=== PATIENT | female | born 1965 | race African-American/Black ===

== ENCOUNTER → 2017-01-15 | Outpatient (CLI) | payer OTHER ==
[~2017-01-15] MED LIST: ALLERGY10 M1 PO; ASPIRIN EC81 M1 PO; GLUCOPHAGE500 M1 PO; LIPITOR40 MG PO; LORTAB 5-325 M1 EACH PO; NORVASC10 MG PO; OMEPRAZOLE40 M1 PO; STOOL SOFTNER PO
--- NOTE | ~2017-01-15 | NM22 ---
[facility] A Service of [facility] RADIOLOGY TEXT RESULTS PATIENT: LACHELLE SMITH LOCATION: [facility] : [birth year] UNIT #: [id number] AGE: [address]: Tremayne Tejeda MD SEX: F ORDER DR: [id number] [facility] [address] [facility]. [place], [place] [address] [id number] O MR#: [id number] Acc #: [id number] NAME: LACHELLE SMITH : 1965 SEX: F STUDY DATE/TIME: 01/15/2017 12:48 UNIT: [facility] ROOM: STUDY DESCRIPTION: ND Hepatobiliary W GB Pharm Attending Physician: Tremayne Tejeda M.D. Referring Physician: Tremayne Tejeda M.D. Ordering Physician: Tremayne Tejeda M.D. Primary Care Physician: Gilmer Gayle Jr., A.P.R.N. MEDICAL IMAGING REPORT This report is preliminary unless electronic signature is present EXAM Hepatobiliary scan INDICATIONS Right upper quadrant abdominal pain with epigastric abdominal pain beginning 7 years ago but getting worse over the past year. PROCEDURE The patient was administered 5.35 mCi technetium labeled Choletec. Imaging of the upper abdomen was performed for 60 minutes. The patient was then administered 1.5 mcg of Kinevac IV per protocol. COMPARISON None FINDINGS Liver shows symmetric extraction excretion of radiotracer. Gallbladder fills by 30 minutes. Ejection fraction is 95.7% at 30 minutes. IMPRESSION Normal. Dictated by... Elliot Gore M.D. THIS IS AN ELECTRONICALLY VERIFIED REPORT Elliot Gore M.D. at 01/17/2017 9:56 PM Shad TD: 01/15/2017 16:14 JOB #: [id number] MEDICAL IMAGING REPORT [facility] A Service [facility] RADIOLOGY TEXT RESULTS PATIENT: LACHELLE SMITH LOCATION: [facility] : [birth year] UNIT #: [id number] AGE: [address]: Tremayne Tejeda MD SEX: F ORDER DR: Page 1 of 1 COPY
== END | disposition home or self-care (01) ==
LOC: CNUC 12:05
DX: R10.11 Right upper quadrant pain (principal); R10.13 Epigastric pain
CPT/HCPCS: 78227; A9537; J2805

== ENCOUNTER 2017-02-13 00:57 | Inpatient (IN) | payer OTHER ==
[~2017-02-13] VITALS: Ht 167.6 cm; Wt 80.0 kg
--- NOTE | ~2017-02-13 | A ---
[facility] Nutrition Therapy DATE: 02/13/17 Patient: LACHELLE SMITH Physician: MARILU Address: [address] [place] [address] Room/Bed: [address], Zip: [place] [address] Admit Date: 02/13/17 Date of : [birth year] Height: 5 6 Weight: 178 81 NUTRITIONAL ASSESSMENT: REASON: NO DIET ORDER IN ICU ASSESSMENT, ALSO SEEN FOR DX PT IS 51 Y.O. FEMALE ADMITTED FOR CVA PMH: HTN, ASTHMA, GERD, HERNIA REPAIR, TOBACCO ABUSE Anthropometrics: 5'6", WT: 178# (80.9 KG), BMI: 28.7 Labs: ALT: 47, ALL LABS WNL Meds: PROTONIX, NACL, KCL I/O & Bowel function: -/1000 Skin Integrity: NO KNOWN SKIN ISSUES Assessment: CHART REVIEWED AND EVENTS NOTED. PT SEEN FOR NO DIET ORDER IN ICU + DX. PER RN AND CHART, PT ADMITTED FOR ABOVE DX. HEAD CT, CTA OF HEAD & NECK WERE NEGATIVE, SYMPTOMS HAVE RESOLVED. PLANS IN PLACE TO ADVANCE DIET LATER TODAY. PT REPORTS GOOD PO INTAKE AND APPETITE PRIOR TO ADMIT, NOTING NO RECENT WEIGHT LOSS. THIS RD ENCOURAGED SLOW GRADUAL PO INTAKE ONCE DIET ADVANCES AND ALSO PROVIDED WRITTEN AND VERBAL HEALTHY HEART DIET EDUCATION. PT REPORTS CUTTING OUT FRIED FOODS AND BAKING MORE. PT ADMITS SHE EATS MIRAMONTES, EGGS AND SAUSAGE EVERY MORNING. RD ENCOURAGED PT TO CONSUME OTHER HEALTHIER LOW-SALT ALTERNATIVES, PT AGREED. PT REPORTED NO DIET QUESTIONS AT THIS TIME. RD TO REMAIN AVAILABLE. Dx: ALTERED NUTRIENT NEEDS R/T CURRENT DIAGNOSIS AEB NO DIET ORDER IN PLACE. Intervention: 1. NO DIET ORDER 2. RD DIET EDUCATION Monitoring, Evaluation and Goals: 1. ORAL INTAKE; ADVANCE DIET AND CONSUME/TOLERATE >50% OF MEALS 2. WEIGHTS; PROMOTE GRADUAL WEIGHT LOSS TOWARDS A HEALTHY BMI MONITOR: -DIET ADVANCEMENT/PO INTAKE -EDUCATION NEEDS Recommendations: 1. ONCE MEDICALLY FEASIBLE, ADVANCE DIET TOLERATED TO HEALTHY HEART. ENCOURAGE [facility] Nutrition Therapy DATE: 02/13/17 Patient: LACHELLE SMITH Physician: MARILU Address: [address] [place] [address] Room/Bed: [address], Zip: [place] [address] Admit Date: 02/13/17 Date of : [birth year] Height: 5 6 Weight: 178 81 COMPLIANCE OF DIET ORDER ONCE ADVANCED 2. CONSULT RD IF FURTHER DIET EDUCATION REQUESTED RD WILL F/U PER PROTOCOL PT IS MILDLY COMPROMISED Respectfully, KIM KIRK MS, RD, LD Food and Nutritional Services [facility] cc: client file
--- NOTE | ~2017-02-13 | FU ---
[facility] Nutrition Therapy DATE: 02/14/17 Patient: LACHELLE Camarena LUIS Physician: MARILU Address: [address] [facility] Room/Bed: [address], Zip: [place] [address] Admit Date: 02/13/17 Date of : [birth year] Height: 5 6 Weight: 176 80 NUTRITION MONITORING/FOLLOW-UP: Reason: CONSULT RE: DM EDUCATION RD PROVIDED VERBAL BASIC CC DIET EDUCATION. OF NOTE, RD PROVIDED HH DIET EDUCATION WELL ON 02/13/17. PT REPORTS LOVING PASTA AND DRINKS BIG RED DAILY. RD PROVIDED HEALTHIER ALTERNATIVES FOR PT, PT DEMONSTRATED UNDERSTANDING OF THE TOPIC. PT REPORTED NO ADDITIONAL DIET EDUCATION QUESTIONS. RD TO REMAIN AVAILABLE UPON REQUEST. RD WILL F/U PER PROTOCOL Respectfully, KIM KIRK MS, RD, LD Food and Nutritional Services [facility] cc: client file
--- NOTE | ~2017-02-13 | MR32 ---
[facility] A Service of [facility] RADIOLOGY TEXT RESULTS PATIENT: LACHELLE SMITH LOCATION: [address] : [birth year] UNIT #: [id number] AGE: [address]: SASHA JONES V SEX: F ORDER DR: [id number] [facility] [address] [place], [place] [address] [id number] I MR#: [id number] Acc #: [id number] NAME: LACHELLE SMITH : 1965 SEX: F STUDY DATE/TIME: 02/13/2017 16:55 UNIT: [facility] ROOM: [facility] STUDY DESCRIPTION: MR Cervical Wo Contrast Attending Physician: Sasha Jones M.D. Ordering Physician: Tal Nieto M.D. Primary Care Physician: Gilmer Gayle Jr., A.P.R.N. MRI CENTER REPORT This report is preliminary unless electronic signature is present. EXAM Cervical spine MRI without contrast. HISTORY Presumed CVA with improved symptoms after tPA. History of essential hypertension. Onset of symptoms 10:00 p.m. 02/12/2017 posterior neck pain numbness in left arm and left leg with weakness in the left arm. COMMENT MRI of the cervical spine performed without contrast using routine 1.5T imaging technique. FINDINGS There is no prior imaging of the cervical spine. There is an earlier CT angiogram head neck and separate MRI of the brain. Please refer to those reports. Sagittal alignment is normal. Study is motion limited. Marrow signal intensity is normal. Cervical cord is normal in size and signal intensity. Prominent vessels are seen anterior to the medulla on the sagittal imaging but there are no axial images through this level. This is the area of concern for possible small AVM on CT angiogram and again this is best pursued with a conventional angiogram. There is no Chiari-I malformation. At C2-3, no significant abnormality. C3-4, no focal disc protrusion or extrusion. No canal or foraminal impingement. At C4-5, mild bilateral facet degenerative change worse to the right with mild broad posterior disc bulge worse to the right. Mild effacement of STS. [facility] A Service of [facility] RADIOLOGY TEXT RESULTS PATIENT: LACHELLE SMITH LOCATION: [address] : [birth year] UNIT #: [id number] AGE: [address]: SASHA JONES V SEX: F ORDER DR: the right anterior thecal sac. No canal stenosis. No significant foraminal impingement. At C5-6, mild bilateral facet degenerative change mild left-side foraminal narrowing. No focal disc protrusion or extrusion or canal stenosis. C6-7, minor posterior disc bulging but no canal or foraminal impingement. C7-T1, mild left-side facet degenerative change in left foraminal narrowing. No canal stenosis. Preliminary wet reading provided by Dr. Madrigal at 17:52 on 02/13/17. IMPRESSION 1. Relatively minor cervical degenerative disease. No evidence for cervical canal stenosis. 2. There are some prominent vessels anterior to the medulla which appear to correspond to the vessels noted on the earlier CT angiogram. This is best pursued with conventional angiogram. MRI of the cervical spine does not include this region on the axial series. Dictated by... Nehal Finney M.D. THIS IS AN ELECTRONICALLY VERIFIED REPORT Nehal Finney M.D. at 02/15/2017 9:28 AM Jordan TD: 02/15/2017 06:13 JOB #: [id number] MRI CENTER REPORT Page 1 of 1 COPY
--- NOTE | ~2017-02-13 | CT18 ---
[facility] A Service of [facility] RADIOLOGY TEXT RESULTS PATIENT: LACHELLE SMITH LOCATION: [address] : [birth year] UNIT #: [id number] AGE: [address]: SASHA JONES V SEX: F ORDER DR: [id number] [facility] [address] [place], [place] [address] [id number] I MR#: [id number] Acc #: [id number] NAME: LACHELLE SMITH : 1965 SEX: F STUDY DATE/TIME: 02/13/2017 1:19 UNIT: [facility] ROOM: [facility] STUDY DESCRIPTION: CT Angio Head Stroke Attending Physician: Sasha Jones M.D. Ordering Physician: Zakia Camacho M.D. Primary Care Physician: Gilmer Gayle Jr., A.P.R.N. MEDICAL IMAGING REPORT This report is preliminary unless electronic signature is present EXAM CT scan of the head and neck with contrast with carotid CT angiography. HISTORY Headache, left-sided weakness, numbness and visual disturbance, onset prior to arrival. TECHNIQUE Axial imaging was obtained from the mid mediastinum to the top of head with contrast. 100 mL of Isovue was used. CT angiography was performed with thick sliding MIPs, curved planar reformats, and 3-D volumetric imaging with surface shaded and volume shaded display. This CT exam was performed with one or more of the following radiation dose reduction techniques: automatic exposure control, adjustment of mA and/or kV according to patient size, and iterative reconstruction. FINDINGS Extravascular structures are remarkable for mild thyromegaly. Correlate with thyroid function tests. The CT angiographic study is remarkable for an abnormal tangle of blood vessels to the left side of the upper cervical cord and with a prominent probable vein along the ventral aspect of the cord and medulla in the midline. 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 This should be further evaluated with a dedicated arteriogram. The remainder of the CT angiographic study is unremarkable. There is a tiny calcified plaque at the left carotid bifurcation with no stenosis by NASCET criteria and there is mild nonocclusive plaque at the great vessel origins. Intracranially there is no evidence of aneurysm or branch vessel occlusive disease. IMPRESSION [facility] A Service of [facility] RADIOLOGY TEXT RESULTS PATIENT: LACHELLE SMITH LOCATION: [address] : [birth year] UNIT #: [id number] AGE: [address]: SASHA JONES V SEX: F ORDER DR: 1. Generalized thyromegaly. Correlate with thyroid function tests. 2. Abnormal vascularity to the left of the upper cervical cord extending into the medulla. 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 Recommend dedicated arteriography for further evaluation of this. Dictated by... Rj Hirsch M.D. THIS IS AN ELECTRONICALLY VERIFIED REPORT Rj Hirsch M.D. at 02/13/2017 4:42 PM ABAD/laura TD: 02/13/2017 12:22 JOB #: [id number] MEDICAL IMAGING REPORT Page 1 of 1 COPY
--- NOTE | ~2017-02-13 | DS ---
Unit #: [id number] #: [id number] Patient: LACHELLE TORRES [id number] [address] [place], [place] [address] [id number] I MR#: [id number] NAME: LACHELLE TORRES. ROOM: [facility] Age: 51 Sex: F Admission Date: 02/13/2017 : 1965 Discharge Date: 02/14/2017 Attending Physician: Gama Rocha M.D. Primary Care Physician: Gilmer Gayle Jr., A.P.R.N. DISCHARGE SUMMARY PRINCIPAL DIAGNOSES 1. Acute transient ischemic attack with left-sided numbness, aborted with tissue plasminogen activator. 2. Hypertension. 3. Mild insulin resistance with hemoglobin A1C of 6.1. 4. Tobaccoism. 5. Asthma. 6. History of illicit substance use. 7. Gastroesophageal reflux disease. 8. Chronic back pain. CONSULTANTS Dr. Nieto, neurology. PROCEDURES Administration of alteplase, which occurred without complication. DIAGNOSTIC STUDIES CARDIOVASCULAR: Two-dimensional echocardiogram on February 13, 2017 with ejection fraction of 65%, mild septal asymmetric hypertrophy noted. Mildly dilated left atrium. No evidence of abnormality on bubble study. Moderate tricuspid regurgitation noted. Mild mitral regurgitation. Right ventricular systolic pressure of 35 mmHg. IMAGING: CT of the head without contrast on February 13, 2017, which was normal. CT angiogram of the head and neck on February 13, 2017 with generalized thyromegaly. Abnormal vascularity of the left upper cervical cord extending into the medulla concerning for small AVM. MRI of the brain without contrast on February 13, 2017 with small vessel ischemic change. No other acute ischemic findings. MRI of the cervical spine without evidence of AVM. There is no cord compression, cord edema or significant disk disease. Repeat CT scan of the head without contrast on February 14, 2017 again without any acute abnormalities. CLINICAL HISTORY AND HOSPITAL COURSE Ms. Torres is a 51-year-old female who presented to the emergency department with acute onset of left-sided numbness and weakness. This was associated with headache, blurred vision, nausea and vomiting. Unit #: [id number] #: [id number] Patient: LACHELLE TORRES The patient presented to out ER and was found to be hypertensive. Ultimately, she was administered alteplase with resolution of her symptoms and admitted to the ICU for further monitoring. The patient's had no further symptoms following administration of alteplase. She has had followup CT scan, which did not reveal any intracranial bleeding as a result. MRI of the brain and MRI of the neck were also unremarkable. I will note an MRI of the neck was done to evaluate abnormal AVM, but again, this was not noted on MRI. Patient today is clinically improved and will be discharged home. The patient does admit she is not always compliant with her medications at home, including aspirin, which she has been prescribed in the past. Thus, this is not considered aspirin failure, and she will reinitiate aspirin therapy. Tobacco cessation has also been stressed. DISCHARGE CONDITION Stable. DISCHARGE STATUS Discharge to home. DISCHARGE MEDICATIONS 1. Aspirin 81 mg daily. 2. Norvasc 10 mg daily with one refill given. 3. Lipitor 40 mg at bedtime with one refill given. 4. Lortab 5/325 mg 1 tablet daily p.r.n. back pain. 5. Omeprazole 20 mg daily. 6. Stool softener p.r.n. opiate-related constipation. DISCHARGE INSTRUCTIONS Patient instructed to follow a heart healthy, constant carb diet. She has received some dietary education. She can increase her activity as tolerated. Refrain from any further tobacco use. FOLLOW-UP 1. Patient will follow up with Dr. Kong Cotto of outpatient neurology in approximately 6 weeks. 2. The patient will follow up with her primary care provider, Gilmer Gayle A.P.R.N., in 2 weeks. NOTE: Time spent on discharge today - 33 minutes. Dictated by... Suad Jiang M.D. AMIE/miguelito TD: 02/16/2017 09:37 JOB #: [id number] Unit #: [id number] #: [id number] Patient: LUISLACHELLE Migue DISCHARGE SUMMARY Page 1 of 1 X Suad Jiang MD DISCHARGE SUMMARY
--- NOTE | ~2017-02-13 | EKG ---
PATIENT: LACHELLE SMITH UNIT #: [id number] Ventricular Rate: 65 BPM Atrial Rate: 65 BPM P-R Interval: 168 ms QRS Duration: 94 ms Q-T Interval: 430 ms QTC Calculation(Bezet): 447 ms P [place]: 71 degrees Calculated R [place]: 66 degrees Calculated T [place]: 43 degrees Diagnosis Line: Normal sinus rhythm Diagnosis Line: Normal ECG Diagnosis Line: When compared with ECG of 15-NOV-2014 16:45, Diagnosis Line: Nonspecific T wave abnormality no longer evident Diagnosis Line: in Anterior leads Diagnosis Line: Confirmed by DYLAN HILLS MD ([id number]) on 02/15/2017 Diagnosis Line: 2:43:04 PM INTERPRETING MD: JEANA BORRERO
--- NOTE | ~2017-02-13 | CT71 ---
[facility] A Service of [facility] RADIOLOGY TEXT RESULTS PATIENT: LACHELLE SMITH LOCATION: [place] [address] : [birth year] UNIT #: [id number] AGE: [address]: SASHA JONES V SEX: F ORDER DR: [id number] [facility] [address] [facility]. [place], [place] [address] [id number] I MR#: [id number] Acc #: [id number] NAME: LACHELLE SMITH : 1965 SEX: F STUDY DATE/TIME: 02/14/2017 01:47 UNIT: [facility] ROOM: [facility] STUDY DESCRIPTION: CT Head Wo Contrast Attending Physician: Sasha Jones M.D. Ordering Physician: Ed Doctor [id number] [facility] Primary Care Physician: Gilmer Gayle Jr., A.P.R.N. MEDICAL IMAGING REPORT This report is preliminary unless electronic signature is present EXAM CT head without contrast, 02/14/17 INDICATIONS Stroke with left side weakness and blurred vision. Symptoms improving. Patient is 24-hour status post TPA administration. FINDINGS Axial images were obtained from base to vertex without contrast. Comparison made with 02/13/2017. This CT exam was performed with one or more of the following radiation dose reduction techniques: automatic exposure control, adjustment of mA and/or kV according to patient size, and iterative reconstruction. Ventricular size and configuration remain normal. No evidence of acute infarct or hemorrhage. No masses. There is no skull fracture. IMPRESSION Negative head CT. No change from prior. Dictated by... Rj Acosta Jr., M.D. THIS IS AN ELECTRONICALLY VERIFIED REPORT Rj Acosta Jr., M.D. at 02/15/2017 4:56 AM JAVI/nury TD: 02/14/2017 22:03 JOB #: [id number] [facility] A Service of [facility] RADIOLOGY TEXT RESULTS PATIENT: LACHELLE SMITH LOCATION: [address] : [birth year] UNIT #: [id number] AGE: [address]: SASHA JONES V SEX: F ORDER DR: MEDICAL IMAGING REPORT Page 1 of 1 COPY
--- NOTE | ~2017-02-13 | HP ---
Unit #: [id number] #: [id number] Patient: LACHELLE SMITH [id number] [address] [place], [place] [address] [id number] I MR#: [id number] NAME: LACHELLE SMITH. ROOM: [facility] Age: 51 Sex: F Admission Date: 02/13/2017 : 1965 Attending Physician: Susan Zendejas M.D. Primary Care Physician: Gilmer Gayle Jr., A.P.R.N. HISTORY AND PHYSICAL CHIEF COMPLAINT Left-sided numbness and weakness better following tPA. HISTORY This 51-year-old female with hypertension, asthma is admitted for left-sided weakness. Patient was in her usual state of health until 10:00 p.m. last evening. She developed posterior neck pain, and then noted numbness in her left arm and left leg with weakness in the left arm. Did experience a frontal headache and some blurred vision with nausea and vomiting. She presented to this emergency department at 1:00 a.m. A code stroke was called, the patient immediately went to CT scan and was seen by the [place]. Her blood pressure was 170/104 but did improve. Due to worsening left pronator drift, she was given tPA per protocol. Her symptoms have since resolved. Head CT, CTA of the head and neck were negative. She has never had similar symptoms in the past. PAST MEDICAL HISTORY 1. Hypertension. 2. Asthma. 3. Total abdominal hysterectomy. 4. . 5. Hernia repair. 6. D and C. ALLERGIES No known drug allergies. HOME MEDICATIONS Norvasc 10 mg daily; Prilosec 20 mg daily. FAMILY HISTORY Hypertension, colon cancer, CAD at a young age. SOCIAL HISTORY The patient lives with her significant other and family. She smokes one pack per day of tobacco, seldom drinks alcohol, does not use illicit drugs. REVIEW OF SYSTEMS Is notable for a left-sided weakness and numbness, hypertension, asthma, tobacco, above mentioned surgeries, blurred vision, headache. All other systems were reviewed and otherwise negative. Unit #: [id number] #: [id number] Patient: LACHELLE MSITH PHYSICAL EXAMINATION GENERAL: Pleasant, mildly obese, 51-year-old female currently in no acute distress. VITAL SIGNS: Temperature 97.7, pulse 70, respirations 14, initial blood pressure 170/104, current blood pressure is 157/78, O2 saturation is 95%. HEENT: Eyes - PERRLA. Extraocular muscles are intact. Pharynx is benign. NECK: Supple without adenopathy, thyromegaly, or carotid bruits. CHEST: Clear. CARDIAC: Normal S1 and S2 without murmur. ABDOMEN: Bowel sounds are present. No hepatosplenomegaly, tenderness, or masses. EXTREMITIES: Without clubbing, cyanosis or edema. Pedal pulses are present. NEUROLOGIC: Patient is awake, alert, and oriented. Cranial nerves are intact. She has +5/5 strength throughout. Normal rapid alternating movements. Normal xokyea-ii-hine. Negative pronator drift. Toes are downgoing bilaterally. Normal bzpt-oo-wuxw. DIAGNOSTIC STUDIES ADMISSION LABS: Hematocrit 45.2, normal white count, platelet count, coags. SMA 7 - potassium is 3.4, glucose 131, INR is 1. IMAGING STUDIES: Head CT - no acute disease. CTA of the head and neck normal. CARDIOLOGY STUDIES: EKG shows a normal sinus rhythm, rate 65, normal appearing. ASSESSMENT 1. Presumed CVA with improved symptoms after tPA. 2. Essential hypertension. 3. GERD. 4. Tobacco use. PLANS 1. Post tPA orders. 2. Neurology, already saw the robot in CT scan, will be seeing in the morning. 3. Smoking cessation counseling. 4. Obtain lipid profile. 5. Obtain urinalysis. 6. SCDs for DVT prophylaxis. 7. Thyroid function test as the thyroid was noted to be enlarged on CTA of the head and neck. 8. Further neurologic workup including MRI, echo, etc. per neurology. Critical care time spent evaluating this patient was 30 minutes. Dictated by Rob Albright/maggie TD: 02/13/2017 05:29 JOB #: [id number] Unit #: [id number] #: [id number] Patient: LACHELLE SMITH HISTORY AND PHYSICAL Page 1 of 1 X Susan Zendejas MD X HISTORY AND PHYSICAL
--- NOTE | ~2017-02-13 | EE ---
Unit #: [id number] #: [id number] Patient: LACHELLE SMITH [id number] [facility]. [address] [place], [place] [address] [id number] I MR#: [id number] NAME: LACHELLE SMITH : 1965 SEX: F STUDY DATE/TIME: 02/13/2017 UNIT: [facility] ROOM: [facility] STUDY DESCRIPTION: Attending Physician: Gaam Rocha M.D. Primary Care Physician: Gilmer Gayle Jr., A.P.R.N. NEURODIAGNOSTICS REPORT EXAM EEG report REASON FOR STUDY The patient had focal event and was treated with TPA and rule out seizure as a possibility of focal abnormalities. EEG DESCRIPTION This is an inpatient, portable, digitally recorded multimontage adult EEG with leads placed according to the International 10/20 system. Hyperventilation and photic stimulation were attempted. FINDINGS With the patient fully aroused there is 10-11 Hz posterior dominant Alpha rhythm which is symmetric and attenuates with eyes opening. The patient did become drowsy and later on stage II sleep was seen. Hyperventilation was attempted but I do not see any significant changes. Photic stimulation was attempted and intermittent stepwise pattern up to the flash frequency of 30 Hz but I do not see any driving, asymmetry, or paroxysmal activity. No clinical events were seen. IMPRESSION This is an essentially normal adult awake and asleep EEG. EEG like this does not rule out epilepsy. Clinical correlation is recommended. Dictated by... Rob Mirza/tara TD: 02/15/2017 16:10 JOB #: [id number] Unit #: [id number] #: [id number] Patient: LACHELLE SMITH NEURODIAGNOSTICS REPORT Page 1 of 1 X Tal Nieto MD NEURODIAGNOSTICS REPORT
--- NOTE | ~2017-02-13 | CT72 ---
[facility] A Service of [facility] RADIOLOGY TEXT RESULTS PATIENT: LACHELLE SMITH LOCATION: [address] : [birth year] UNIT #: [id number] AGE: [address]: MARÍA ELENA JONESUJ V SEX: F ORDER DR: [id number] [facility] [address] [place], [place] [address] [id number] I MR#: [id number] Acc #: [id number] NAME: LACHELLE SMITH : 1965 SEX: F STUDY DATE/TIME: 02/13/2017 1:09 UNIT: [facility] ROOM: [facility] STUDY DESCRIPTION: CT Head Wo Contrast Stroke Attending Physician: Susan Zendejas M.D. Ordering Physician: Ed Doctor [id number] [facility] Primary Care Physician: Gilmer Gayle Jr., A.P.R.N. MEDICAL IMAGING REPORT This report is preliminary unless electronic signature is present EXAM CT head, noncontrast, 02/13/2017 HISTORY A 51-year-old female in the ED complaining of new onset left-side weakness and numbness with headache and visual disturbance beginning tonight prior to arrival. TECHNIQUE CT examination of the head without IV contrast under stroke protocol. Exam time 01:09 hours. Exam interpretation time 01:[address] exam was performed with one or more of the following radiation dose reduction techniques: automatic exposure control, adjustment of mA and/or kV according to patient size, and iterative reconstruction. FINDINGS The examination is negative. No evidence of intracranial hemorrhage, mass, mass effect, cerebral edema, hydrocephalus or additional abnormality. No change since the previous study of 11/15/2014. IMPRESSION Negative head CT examination. No change since 11/15/2014. Dictated by... Brad Hudson M.D. THIS IS AN ELECTRONICALLY VERIFIED REPORT Brad Hudson M.D. at 02/13/2017 5:03 PM DREW/nury [facility] A Service of [facility] RADIOLOGY TEXT RESULTS PATIENT: LACHELLE SMITH LOCATION: [place] [address] : [birth year] UNIT #: [id number] AGE: [address]: ROBERTSASHA V SEX: F ORDER DR: TD: 02/13/2017 01:21 JOB #: [id number] MEDICAL IMAGING REPORT Page 1 of 1 COPY
--- NOTE | ~2017-02-13 | MR18 ---
[facility] A Service of [facility] RADIOLOGY TEXT RESULTS PATIENT: LACHELLE SMITH LOCATION: [place] [address] : [birth year] UNIT #: [id number] AGE: [address]: SASHA JONES V SEX: F ORDER DR: [id number] [facility] [address] [place], [place] [address] [id number] I MR#: [id number] Acc #: [id number] NAME: LACHELLE SMITH : 1965 SEX: F STUDY DATE/TIME: 02/13/2017 16:40 UNIT: [facility] ROOM: [facility] STUDY DESCRIPTION: MR Brain Wo Contrast Attending Physician: Sasha Jones M.D. Ordering Physician: Arabella Fox A.P.RNeida Primary Care Physician: Gilmer Gayle Jr. A.P.R.NRylee MRI CENTER REPORT This report is preliminary unless electronic signature is present. EXAM MR brain without contrast HISTORY Sudden onset left body weakness and paresthesia on 02/13/2017, improved with Alteplase, resolved. Hypertension. Hyperlipidemia. Diabetes. Tobacco use. COMPARISON CT head without contrast 02/13/2017 at 01:09. CTA head stroke protocol 02/13/2017 at 01:19. TECHNIQUE Multiplanar, multisequence imaging of the brain without contrast per stroke protocol. FINDINGS No restricted diffusion and no evidence of acute or evolving ischemic change. Scattered T2 hyperintensities are demonstrate within the deep white matter and periventricular white matter of the brain consistent with the appearance of chronic microvascular disease. No mass lesion, mass effect, midline shift or intracranial hemorrhage is evident. Normal ventricular configuration. No calvarial abnormality is seen. Globes appear unremarkable. The major vascular flow voids appear preserved. IMPRESSION 1. No acute intracranial findings. No evidence of acute or subacute ischemic insult. 2. Scattered FLAIR signal intensity changes in the brain are nonspecific but favored to represent changes of mild chronic microvascular disease. [facility] A Service of [facility] RADIOLOGY TEXT RESULTS PATIENT: LACHELLE SMITH LOCATION: [place] [address] : [birth year] UNIT #: [id number] AGE: [address]: SASHA JONES V SEX: F ORDER DR: Dictated by... Aria Madrigal M.D. THIS IS AN ELECTRONICALLY VERIFIED REPORT Aria Madrigal M.D. at 02/16/2017 8:38 AM LLH/pcl TD: 02/14/2017 12:11 JOB #: [id number] MRI CENTER REPORT Page 1 of 1 COPY
--- NOTE | ~2017-02-13 | CT24 ---
[facility] A Service of [facility] RADIOLOGY TEXT RESULTS PATIENT: LACHELLE SMITH LOCATION: [place] [address] : [birth year] UNIT #: [id number] AGE: [address]: SASHA JONES V SEX: F ORDER DR: [id number] [facility] [address] [place], [place] [address] [id number] I MR#: [id number] Acc #: [id number] NAME: LACHELLE SMITH : 1965 SEX: F STUDY DATE/TIME: 02/13/2017 1:19 UNIT: [facility] ROOM: [facility] STUDY DESCRIPTION: CT Angio Neck Stroke Attending Physician: Sasha Jones M.D. Ordering Physician: Elliot Camacho M.D. Primary Care Physician: Gilmer Gayle Jr., A.P.R.N. MEDICAL IMAGING REPORT This report is preliminary unless electronic signature is present EXAM CT scan of the neck with contrast with carotid CT angiography. HISTORY Headache, left-sided weakness, numbness and visual disturbance, onset prior to arrival. FINDINGS Please see CT angio head stoke for results. Dictated by... Rj Hirsch M.D. THIS IS AN ELECTRONICALLY VERIFIED REPORT Rj Hirsch M.D. at 02/13/2017 4:43 PM ABAD/laura TD: 02/13/2017 12:24 JOB #: [id number] MEDICAL IMAGING REPORT Page 1 of 1 COPY
--- NOTE | ~2017-02-13 | CO ---
Unit #: [id number] #: [id number] Patient: LACHELLE SMITH [id number] [facility] [address] [place], [place] [address] [id number] I MR#: [id number] NAME: LACHELLE SMITH ROOM: [facility] Age: 51 Sex: F Admission Date: 02/13/2017 : 1965 Attending Physician: Gama Rocha M.D. Primary Care Physician: Gilmer Gayle Jr., AlvaroPRyleeRNeida Consultation Date: 02/13/2017 CONSULTATION REPORT PRIMARY CARE PHYSICIAN Gilmer Gayle A.P.R.N. REASON FOR CONSULTATION Code stroke protocol. PATIENT IDENTIFICATION This is a 51-year-old right-handed female, evaluated in ICU room 8 at [facility]. SOURCE OF INFORMATION Obtained from the patient as well as medical record. HISTORY OF PRESENT ILLNESS This is a very pleasant 51-year-old right-handed female with past medical history of hypertension, asthma, and diabetes mellitus type 2, who presented to [facility] on the evening of admission with complaints of left-sided weakness. The patient states she was in her usual state of health until about 2200 hours when she presented to [facility] close to 1:00 a.m. about 3 hours prior to arrival. She developed sudden onset left-sided numbness and weakness in the left arm and left leg. She initially did not come to the hospital, but she states after looking on the Internet regarding her symptoms, she was concerned that she might be having a stroke, so she came to the ER, so she called 911 to be brought to the ER for further evaluation. She states that she did experience a frontal headache and some blurred vision with some nausea, but no vomiting. She denies any facial weakness or facial numbness, but reports that her left arm began to feel funny and suddenly became so weak that she could not use it. She states her left leg became so weak that she needed help ambulating, which is unusual for her. She states that she is independent otherwise. She had a stat CT in the ER as the head without contrast stroke protocol that was negative. She had a CT angiogram of the head and neck that showed generalized thyromegaly and abnormal vascularity to the left of the upper cervical cord extending into the medulla reflecting likely a small arterial venous malformation, but no other abnormalities. She reports a sudden onset of deficits with no exacerbating or alleviating factors or any other associated chest pain, shortness of air, palpitations, loss of consciousness, or loss of awareness, fever, chills, speech, or swallowing changes. She does report that she had blurred vision that came on suddenly as well. Following alteplase administration, her symptoms resolved. She currently has an NIH of 0 and feels like she is back to her baseline. She was admitted to [facility] for further workup and evaluation of possible stroke versus TIA. She is status post alteplase per protocol in the ICU. Unit #: [id number] #: [id number] Patient: LACHELLE SMITH Her blood pressure was initially elevated, but improved. Her blood pressure is currently 121/66, in the ER was initially 170/104, but with repeat evaluation is 166/86. She denies any current complaints otherwise. She denies any prior similar symptoms. She states that she does get headaches on occasion, but reports she has never experienced these symptoms associated with the headache. PAST MEDICAL HISTORY 1. Hypertension. 2. Asthma. 3. Diabetes mellitus type 2. 4. Total abdominal hysterectomy. 5. . 6. Hernia repair. 7. D and C. 8. GERD. ALLERGIES No known drug allergies. HOME MEDICATIONS As per med rec. She takes Norvasc 10 mg p.o. daily, omeprazole 20 mg p.o. daily, Lortab 5/325 1 tab p.o. daily as well takes a stool softener for opioid related constipation as needed. The patient had some other medications on initial med rec, but the patient admits to noncompliance with some of the medications on list, so they were re-reconciled in the above medications are what she actually takes. She is supposed to be on metformin, though she does not take that. She is also supposed to be on aspirin, but does not take that according to the patient. FAMILY HISTORY Positive for CAD, hypertension, colon cancer. Her mother had a heart attack at a very young age in her early 50s. SOCIAL HISTORY The patient lives with family. She smokes one pack per day of tobacco. She denies alcohol abuse or any illicit drug use. REVIEW OF SYSTEMS 14-point review of systems was done. Pertinent positives are as discussed above otherwise negative. PHYSICAL EXAMINATION VITAL SIGNS: Temperature 97.8, pulse 56, respirations 13, blood pressure 121/66, oxygen saturations 97% on room air, height 5 feet 6 inches, weight 178 pounds. BMI 29. NEUROLOGIC: The patient is awake, alert, and oriented to person, place, and time as well as events. No right or left confusion. No finger agnosia. No aphasia, dysarthria, or apraxia. Cranial nerve exam, she demonstrates full thorpe of vision. Eyes are conjugate without ptosis or nystagmus. Extraocular movements are intact. Sensation of face and scalp is intact. Strength of the muscle of facial expression is intact. Hearing is intact to finger rub and conversation. Tongue is midline. Uvula is midline. Palatal elevation is normal. Head turning and shoulder shrug are unremarkable. Neck is supple. Motor exam, she demonstrates normal bulk and tone. Strength is equal 5/5 in all extremities. Sensory exam intact to soft touch and pinprick sensation. No extinction appreciated. Gait and Romberg deferred. Reflexes, 1/4. Toes are Unit #: [id number] #: [id number] Patient: LACHELLE SMITH equivocal. Coordination unremarkable. DIAGNOSTIC STUDIES IMAGING STUDIES: Please see above. LABORATORY RESULTS: Hemoglobin A1c 6.1. CMP unremarkable other than ALT of 47, alkaline phosphatase of 93, cholesterol is 166, triglycerides 92, LDL 87, HDL 61. CK 72. Troponin less than 0.03. TSH 1.19. CBC unremarkable. PT 10.5, INR 1.0. IMPRESSION 1. Sudden onset left-sided weakness and paresthesia, status post alteplase, resolved. Consider possibility of ischemic infarct versus transient ischemic attack versus other etiology. No facial involvement or cortical signs, but symptom onset was sudden with resolution after alteplase administration. 2. Hypertension. 3. Hyperlipidemia. We will initiate atorvastatin. 4. Diabetes mellitus type 2. Hemoglobin A1c 6.1. We will defer to Primary. 5. Tobaccoism. Discussed cessation with the patient. 6. Cervical arteriovenous malformation. PLAN We will request MRI of the brain, lab work, aspirin in the morning if repeat CT of the head was negative for bleed 24 hours post alteplase administration. The patient does admit to noncompliance with medications including aspirin. Therefore, we will start the patient on aspirin, pending her MRI and further workup with clinical course. Further imaging may be recommended. At this time, we will assess her risk factors for stroke and will continue to follow. Please call for any questions or issues. We thank you very much for allowing us to assist in the care of this patient. Of note, Dr. Nieto reviewed the CT angiogram. Dictated by... Arabella Fox A.P.R.N. for Rob Mirza/tip TD: 02/14/2017 12:22 JOB #: [id number] CONSULTATION REPORT Page 1 of 1 X Arabella Fox ACUTE CARE CERTIFIED NURSING ASSISTANT X CONSULTATION REPORT
[~2017-02-13 00:57] MED LIST changes: -ALLERGY10 M1 PO; -LIPITOR40 MG PO
[2017-02-13 01:25] LABS: POC - CREATININE 0.74 mg/dL (0.44-1.03); POC - GFR >60.0 mL/min (>60)
[2017-02-13 01:33] LABS: BASOPHIL# 0.1 X10e3 (0-0.3); BASOPHIL% 0.9 % (0-2.5); DIFF IND NO; EOSINOPHIL# 0.1 X10e3 (0-0.7); EOSINOPHIL% 0.9 % (0.0-7.0); HEMATOCRIT 45.2 % (35.0-45.0); HEMOGLOBIN 15.1 gm/dL (12.0-16.0); LYMPHOCYTE# 2.9 X10e3 (1.0-3.5); LYMPHOCYTE% 31.2 % (17.0-45.0); MEAN CELL VOLUME 88.1 FL (83-96); MEAN CORPUSCULAR HEMOGLOBIN 29.4 PG (28-34); MEAN CORPUSCULAR HGB CONC 33.3 g/dL (30-36); MEAN PLATELET VOLUME 8.5 FL (6.5-11.5); MONOCYTE# 0.8 X10e3 (0-1.0); MONOCYTE% 8.2 % (3.0-12.0); NEUTROPHIL# 5.5 X10e3 (1.5-7.1); NEUTROPHIL% 58.8 % (40-75); PLATELET COUNT 334 X10e3 (140-420); RED BLOOD COUNT 5.13 X10e (3.90-5.30); RED CELL DISTRIBUTION WIDTH 14.8 % (11.0-15.5); WHITE BLOOD COUNT 9.4 X10e3 (4.0-10.5)
[2017-02-13 01:41] LABS: PROTHROMBIN TIME (PATIENT) 10.5 SECONDS (10.0-11.7)
[2017-02-13 01:44] LABS: CALCIUM SERUM 9.2 mg/dL (8.4-10.2); CREATININE SERUM 0.6 mg/dL (0.6-1.4); GLOM FILT RATE Estimated 122.3 mL/min (>60); POTASSIUM 3.4 mmol/L (3.5-5.1)
[2017-02-13 05:23] LABS: BASOPHIL# 0.1 X10e3 (0-0.3); BASOPHIL% 0.7 % (0-2.5); EOSINOPHIL# 0.1 X10e3 (0-0.7); EOSINOPHIL% 1.2 % (0.0-7.0); HEMATOCRIT 41.9 % (35.0-45.0); LYMPHOCYTE# 2.9 X10e3 (1.0-3.5); LYMPHOCYTE% 33.5 % (17.0-45.0); MEAN CELL VOLUME 88.3 FL (83-96); MEAN CORPUSCULAR HEMOGLOBIN 29.5 PG (28-34); MEAN CORPUSCULAR HGB CONC 33.4 g/dL (30-36); MEAN PLATELET VOLUME 8.3 FL (6.5-11.5); MONOCYTE# 0.7 X10e3 (0-1.0); MONOCYTE% 7.5 % (3.0-12.0); NEUTROPHIL# 4.9 X10e3 (1.5-7.1); NEUTROPHIL% 57.1 % (40-75); PLATELET COUNT 327 X10e3 (140-420); RED BLOOD COUNT 4.74 X10e (3.90-5.30); RED CELL DISTRIBUTION WIDTH 14.8 % (11.0-15.5); WHITE BLOOD COUNT 8.7 X10e3 (4.0-10.5)
[2017-02-13 05:39] LABS: DIFF IND NO
[2017-02-13 06:19] LABS: THYROID STIMULATING HORMONE 1.19 uIU/ml (0.34-5.60)
[2017-02-13 06:26] LABS: FREE THYROXIN (T4) 0.88 ng/dL (0.58-1.64)
[2017-02-13 07:30] LABS: BILIRUBIN,TOTAL 0.6 mg/dL (0.2-2.0); BUN/CREATININE RATIO 17.14; CALCIUM SERUM 9.4 mg/dL (8.4-10.2); CREATININE SERUM 0.7 mg/dL (0.6-1.4); GLOM FILT RATE Estimated 116.3 mL/min (>60); POTASSIUM 3.8 mmol/L (3.5-5.1)
[2017-02-13] MEDS ORDERED: ALLERGY10 M1 PO (07:55)
[2017-02-13 12:23] LABS: URINE APPEARANCE CLEAR; URINE BILIRUBIN NEG (NEG); URINE BLOOD 1+ (NEG); URINE COLOR YELLOW; URINE GLUCOSE NEG (NEG); URINE KETONE NEG (NEG); URINE LEUKOCYTE ESTERASE 2+ (NEG); URINE NITRATE NEG (NEG); URINE PH 6.5 (5-8); URINE PROTEIN NEG (NEG); URINE SPECIFIC GRAVITY 1.022 (1.003-1.035); URINE UROBILINOGEN 0.2 MG/DL (NEG)
[2017-02-13 12:25] LABS: CULTURE INDICATED? YES; URINE BACTERIA AUWI NEG (NEGATIVE); URINE SQUAMOUS EPITHELIAL CELL FEW /[HPF]; UWBCS1 AUWI 50-100 (0-5)
[2017-02-14] MEDS ORDERED: LIPITOR40 MG PO (11:37)
== END 2017-02-14 11:30 | disposition home or self-care (01) | DRG 69 ==
LOC: CED 00:57 → CEDOF 03:29 → CED 03:29 → CEDOF 04:00 → CICCU2 04:15
PROVIDERS: Emergency Medicine; Internal Medicine
PROC: 3E03317 Introduction of Other Thrombolytic into Peripheral Vein, Percutaneous Approach (ICD-10-PCS; principal; 2017-02-13)
PROC: B32GYZZ Computerized Tomography (CT Scan) of Bilateral Vertebral Arteries using Other Contrast (ICD-10-PCS; 2017-02-13)
PROC: B32RYZZ Computerized Tomography (CT Scan) of Intracranial Arteries using Other Contrast (ICD-10-PCS; 2017-02-13)
DX: G45.9 Transient cerebral ischemic attack, unspecified (principal); E88.81 Metabolic syndrome and other insulin resistance; I10 Essential (primary) hypertension; F17.210 Nicotine dependence, cigarettes, uncomplicated; J45.909 Unspecified asthma, uncomplicated; K21.9 Gastro-esophageal reflux disease without esophagitis; M54.9 Dorsalgia, unspecified; G89.29 Other chronic pain; I08.1 Rheumatic disorders of both mitral and tricuspid valves; Z90.710 Acquired absence of both cervix and uterus; R29.703 NIHSS score 3
CPT/HCPCS: 51702; 70450; 70496; 70498; 70551; 72141; 80048; 80053; 80061; 81003; 82550; 82565; 82947; 83036; 83735; 84439; 84443; 84484; 85025; 85610; 86850; 86900; 86901; 87086; 92610; 93005; 93306; 95816; 96365; 96366; 97165; 99291; G8987-GO; G8988-GO; G8989-GO; G8996-GN; G8997-GN; G8998-GN; J1815; J2997; Q9967